=== PATIENT | female | born 1955 | race Caucasian/White ===

== ENCOUNTER → 2018-03-24 | Outpatient (CLI) | payer OTHER ==
[~2018-03-24] MED LIST: DOSTINEX0.5 MG PO; KETO10TA2 PO; NOLVADEX10 MG PO; ORPH100T PO
== END | disposition home or self-care (01) ==
LOC: NUCLEAR 10:53
DX: M81.0 Age-related osteoporosis without current pathological fracture (principal)

== ENCOUNTER 2019-03-20 15:09 | Outpatient (CLI) | payer BC | END 2019-03-20 15:11 | disposition home or self-care (01) | LOC: RAD 15:09 | DX: M54.5 Low back pain (principal) ==

== ENCOUNTER 2023-01-09 10:15 | Outpatient (CLI) | payer OTHER, BC | END 2023-01-09 10:23 | disposition home or self-care (01) | LOC: SONOGRAMA 10:15 | PROVIDERS: ATTEND Internal Medicine Gastroenterology | DX: R16.2 Hepatomegaly with splenomegaly, not elsewhere classified (principal) ==

== ENCOUNTER → 2023-01-09 | Outpatient (CLI) | payer OTHER, BC | END | disposition home or self-care (01) | LOC: NUCLEAR 12:18 | PROVIDERS: ATTEND Obstetrics & Gynecology | DX: M81.0 Age-related osteoporosis without current pathological fracture (principal) ==

== ENCOUNTER 2024-06-30 10:14 | Outpatient (CLI) | payer OTHER, BC | END 2024-06-30 10:25 | disposition home or self-care (01) | LOC: RAD 10:14 | PROVIDERS: ATTEND Obstetrics & Gynecology | DX: R91.8 Other nonspecific abnormal finding of lung field (principal) ==